=== PATIENT | female | born 1960 | race Hispanic/Latino ===

== ENCOUNTER 2021-02-11 07:15 | Emergency (ER) | payer BC ==
[2021-02-11 08:03] LABS: Urine Blood 1+ (Negative); Urine Glucose Negative (Negative); Urine Protein 1+ (Negative); Urine Specific Gravity >=1.030 (1.005-1.030)
[2021-02-11 08:10] LABS: Absolute Lymphocytes (CBC) 0.9 K/uL (0.7-4.9); Basophils % 0.3 % (0-1.3); Hematocrit 43.7 % (36.0-45.0); Lymphocytes % 15.6 % (15.3-44.8)
[2021-02-11 08:18] LABS: Urine Bacteria <20 /HPF (<20); Urine RBC NONE SEEN /HPF (NONE SEEN)
[2021-02-11 08:29] LABS: Albumin 3.5 g/dL (3.4-5.0); Bilirubin Direct 0.1 mg/dL (0-0.2); Bilirubin Total 0.4 mg/dL (0.2-1.0); Potassium 3.4 mmol/L (3.5-5.1); Protein, Total 7.6 g/dL (6.4-8.2)
[2021-02-11] MEDS ORDERED: NA CHLORIDE 0.9% 500 ML ONE (08:29)
[2021-02-11] MEDS ORDERED: ONDANSETRON 4 MG/2 ML VIAL ONE ×2 (08:29→09:43)
--- NOTE | 2021-02-11 09:00 | RAD REPORT ---
EXAM DESCRIPTION: CTAbdomen Pelvis W Contrast - 02/11/2021 8:29 am CLINICAL HISTORY: Abdominal pain. Abd pain;Nausea / vomiting COMPARISON: No comparisons TECHNIQUE: Biphasic CT imaging of the abdomen and pelvis was performed with 100 ml non-ionic IV cont rast. All CT scans are performed using dose optimization technique as appropriate and may include automated exposure control or mA/KV adjustment according to patient size. FINDINGS: Small area of infiltrate is seen posterior left lung base.Small hiatal hernia. Mild diffuse fatty liver. The spleen, pancreas, adrenal glands are normal. Small cyst in the superior right kidney. No aggressive kidney mass or hydronephrosis. No bowel obstruction, free air, free fluid or abscess. Mild sigmoid diverticulosis without diverticul itis. The appendix is normal. Small fat containing umbilical hernia. No evidence of significant lymph adenopathy. No suspicious bony findings. IMPRESSION: Mild posterior left lung base infiltrate/developing pneumonia. Diffuse fatty liver.
[2021-02-11] MEDS ORDERED: HYDROCODONE/CHLORPHEN 5 ML/OSYR ONE (09:43)
--- NOTE | 2021-02-11 10:22 | RAD REPORT ---
EXAM DESCRIPTION: RAD - Chest Single View - 02/11/2021 9:33 am CLINICAL HISTORY: COUGH Chest pain. COMPARISON: No comparisons FINDINGS: Portable technique limits examination quality. Interstitial lung prominence is seen bilaterally suggesting underlying bronchitis or viral infection. Small opacity is seen in the right suprahilar region which may represent a superimposed developing i nfiltrate/ pneumonia. The heart is upper limit normal in size.
[2021-02-11] MEDS ORDERED: NA CHLORIDE 0.9% 50 ML ONE (11:37)
[2021-02-11] MEDS ORDERED: PROMETHAZINE INJ 25 MG/ML AMP ONE (11:37)
[2021-02-11] MEDS ORDERED: CEFTRIAXONE/SWI 1gm 1 GM/10 ML SYR ONE (11:37)
--- NOTE | 2021-02-11 12:18 | ER ---
Nurse's Notes [facility] Name: Agatha Palma Age: 60 yrs Sex: Female : 1960 Arrival Date: 02/11/2021 Time: 07:18 Bed 19 Private MD: Diagnosis: Vomiting;Pneumonia due to SARS-associated coronavirus Presentation: 02/11 07:18 Chief complaint: Patient states: N/V that began 2 days ago. Dry cough that began ss yesterday. Ebola Screen: Patient denies exposure to infectious person. Patient denies travel to an Ebola-affected area in the 21 days before illness onset. Initial Sepsis Screen: Does the patient meet any 2 criteria? No. Patient's initial sepsis screen is negative. Does the patient have a suspected source of infection? No. Patient's initial sepsis screen is negative. Risk Assessment: Do you want to hurt yourself or someone else? Patient reports no desire to harm self or others. Onset of symptoms was February 09, 2021. 07:18 Method Of Arrival: Ambulatory ss 07:18 Acuity: CASPER 3 ss 07:25 Coronavirus screen: Client denies travel out of the [place] in the last 14 days. Client bb presents with at least one sign or symptom that may indicate coronavirus-19. Standard/surgical mask placed on the client. Provider contacted for isolation considerations. Historical: - Allergies: 07:24 No Known Allergies; bb - Home Meds: 07:24 lisinopril-hydrochlorothiazide 20-12.5 mg oral tab 1 tab once daily [Active]; bb promethazine 25 mg Oral tab 1 tab as needed [Active]; - PMHx: 07:24 Hypertensive disorder; bb - PSHx: 07:24 None; bb - Immunization history:: Adult Immunizations up to date, Client reports receiving the 2nd dose of the Covid vaccine. - Social history:: Smoking status: Patient denies any tobacco usage or history of. Screenin:14 Abuse screen: Denies threats or abuse. Denies injuries from another. Nutritional ph screening: No deficits noted. Tuberculosis screening: No symptoms or risk factors identified. Fall Risk None identified. Assessment: 07:30 General: Appears in no apparent distress. uncomfortable, obese, well groomed, Behavior ph is calm, cooperative, appropriate for age, Denies fever, chills. Pain: Denies pain. Neuro: Level of Consciousness is awake, alert, obeys commands, Oriented to person, place, time, situation. Cardiovascular: Reports fatigue, nausea, vomiting, Denies chest pain, Capillary refill < 3 seconds in bilateral fingers Patient's skin is warm and dry. Respiratory: Reports cough that is Airway is patent Respiratory effort is even, unlabored, Respiratory pattern is regular, symmetrical. GI: Abdomen is non-distended, Reports nausea, vomiting, Patient currently denies abdominal pain, diarrhea. Derm: Skin is intact, Skin is pink, warm \T\ dry. Musculoskeletal: Circulation, motion, and sensation intact. Range of motion: intact in all extremities. 08:14 Reassessment: Pt taken to CT via wheelchair. ph 09:30 Reassessment: Patient appears in no apparent distress at this time. Patient and/or ph family updated on plan of care and expected duration. Pain level reassessed. Patient is alert, oriented x 3, equal unlabored respirations, skin warm/dry/pink. 10:47 Reassessment: Patient appears in no apparent distress at this time. Patient and/or ph family updated on plan of care and expected duration. Pain level reassessed. Patient is alert, oriented x 3, equal unlabored respirations, skin warm/dry/pink. 11:45 Reassessment: Patient appears in no apparent distress at this time. Patient and/or ph family updated on plan of care and expected duration. Pain level reassessed. Patient is alert, oriented x 3, equal unlabored respirations, skin warm/dry/pink. Pt c/o nausea, dry heaving noted, IV phenergan given per verbal order from ERP. Vital Signs: 07:25 BP 152 / 85; Pulse 96; Resp 16; Temp 98.7(O); Pulse Ox 94% on R/A; Weight 108.86 kg; bb Height 5 ft. 1 in. (154.94 cm); Pain 5/10; 09:15 BP 128 / 70; Pulse 77; Resp 18; Pulse Ox 96% on R/A; ph 10:30 BP 120 / 75; Pulse 77; Resp 18; Pulse Ox 95% on R/A; ph 11:30 BP 145 / 73; Pulse 74; Resp 18; Pulse Ox 96% on R/A; ph 07:25 Body Mass Index 45.35 (108.86 kg, 154.94 cm) bb ED Course: 07:18 Patient arrived in ED. ss 07:20 Triage completed. ss 07:24 Arm band placed on right wrist. bb 07:27 Angela Gifford, LUIS is Primary Nurse. ph 07:30 Michi Huffman NP is PHCP. pm1 07:30 Mauro Hawkins MD is Attending Physician. pm1 07:55 Inserted saline lock: 22 gauge in left wrist, using aseptic technique. ph 08:29 CT Abd/Pelvis - IV Contrast Only In Process Unspecified. EDMS 09:14 Patient has correct armband on for positive identification. Bed in low position. Call ph light in reach. Side rails up X 1. Pulse ox on. NIBP on. Door closed. Noise minimized. Warm blanket given. 09:33 Chest Single View XRAY In Process Unspecified. EDMS 11:35 No provider procedures requiring assistance completed. ph 12:33 IV discontinued, intact, bleeding controlled, No redness/swelling at site. ph Administered Medications: 08:14 Drug: Zofran (Ondansetron) 4 mg Route: IVP; Site: left wrist; ph 09:29 Follow up: Response: No adverse reaction ph 08:14 Drug: NS 0.9% 500 ml Route: IV; Rate: bolus; Site: left wrist; ph 09:28 Follow up: Response: No adverse reaction; IV Status: Completed infusion; IV Intake: ph 500ml 09:26 Drug: Zofran (Ondansetron) 4 mg Route: IVP; Site: left wrist; ph 11:55 Follow up: Response: No adverse reaction; Nausea unchanged ph 11:34 Drug: Rocephin (cefTRIAXone) 1 grams Route: IV; Rate: calculated rate; Site: left wrist;ph 11:55 Follow up: Response: No adverse reaction; IV Status: Completed infusion ph 11:35 Drug: Phenergan (promethazine) 12.5 mg Route: IVP; Site: left wrist; ph 11:55 Follow up: Response: No adverse reaction; Nausea is decreased ph Intake: 09:28 IV: 500ml; Total: 500ml. ph Outcome: 12:17 Discharge ordered by . pm1 12:32 Discharged to home ambulatory. ph 12:32 Condition: stable 12:32 Discharge instructions given to patient, Instructed on discharge instructions, follow up and referral plans. medication usage, Demonstrated understanding of instructions, follow-up care, medications. 12:33 Patient left the ED. ph Signatures: Dispatcher [employer] EDMS Isamar Crowe RN RN bb Maren Jha RN RN ss Angela Gifford RN RN ph Michi Huffman, [employer] TE[employer] pm1 Corrections: (The following items were deleted from the chart) 07:26 07:18 Chief complaint: Patient states: N/V that began 2 days ago. yumi canela
--- NOTE | 2021-02-11 12:18 | EDPHYS ---
Physician Documentation [facility] Name: Agatha Palma Age: 60 yrs Sex: Female : 1960 Arrival Date: 02/11/2021 Time: 07:18 Bed 19 Private MD: ED Physician Mauro Hawkins HPI: 02/11 08:47 This 60 yrs old Female presents to ER via Ambulatory with complaints of pm1 Nausea/Vomiting. 08:47 The patient presents to the emergency department with nausea, vomiting. Onset: The pm1 symptoms/episode began/occurred 2 day(s) ago. Possible causes: unknown. The symptoms are aggravated by food , The symptoms are alleviated by prescription meds, phenergan. Associated signs and symptoms: Pertinent positives: abdominal pain, Pertinent negatives: constipation, diarrhea, dysuria, fever. Severity of symptoms: in the emergency department the symptoms are unchanged. The patient has not recently seen a physician. 08:47 Patient has been taking left over prescription of Phenergan. Taking 1/4 of the tablets. pm1 Works but does not last long . Historical: - Allergies: 07:24 No Known Allergies; bb - Home Meds: 07:24 lisinopril-hydrochlorothiazide 20-12.5 mg oral tab 1 tab once daily [Active]; bb promethazine 25 mg Oral tab 1 tab as needed [Active]; - PMHx: 07:24 Hypertensive disorder; bb - PSHx: 07:24 None; bb - Immunization history:: Adult Immunizations up to date, Client reports receiving the 2nd dose of the Covid vaccine. - Social history:: Smoking status: Patient denies any tobacco usage or history of. ROS: 08:47 Constitutional: Negative for fever, chills, and weight loss, ENT: Negative for injury, pm1 pain, and discharge, Neck: Negative for injury, pain, and swelling, Cardiovascular: Negative for chest pain, palpitations, and edema, Respiratory: Negative for shortness of breath, cough, wheezing, and pleuritic chest pain. 08:47 Back: Negative for injury and pain, : Negative for injury, bleeding, discharge, and swelling, MS/Extremity: Negative for injury and deformity, Skin: Negative for injury, rash, and discoloration, Neuro: Negative for headache, weakness, numbness, tingling, and seizure. 08:47 Abdomen/GI: Positive for abdominal pain, nausea and vomiting, of the right upper quadrant and left upper quadrant, Negative for diarrhea, constipation. 08:47 All other systems are negative. Exam: 08:47 Constitutional: This is a well developed, well nourished patient who is awake, alert, pm1 and in no acute distress. Head/Face: Normocephalic, atraumatic. 08:47 Back: No spinal tenderness. No costovertebral tenderness. Full range of motion. Skin: Warm, dry with normal turgor. Normal color with no rashes, no lesions, and no evidence of cellulitis. MS/ Extremity: Pulses equal, no cyanosis. Neurovascular intact. Full, normal range of motion. 08:47 Eyes: Exam is negative for acute changes, Extraocular movements: no acute changes, Conjunctiva: no acute changes, no injection, Sclera: no acute changes, icterus, is not appreciated. 08:47 ENT: Mouth: Lips: normal, Oral mucosa: normal, pink and intact, moist. 08:47 Cardiovascular: Rate: normal, Rhythm: regular, Pulses: no pulse deficits are appreciated, Edema: is not appreciated. 08:47 Respiratory: Exam negative for acute changes, respiratory distress, shortness of breath, Breath sounds: are clear throughout. 08:47 Abdomen/GI: Inspection: obese Palpation: abdomen is soft and non-tender, in all quadrants. 08:47 Neuro: Exam negative for acute changes, Orientation: is normal, Mentation: is normal, Motor: is normal, moves all fours. Vital Signs: 07:25 BP 152 / 85; Pulse 96; Resp 16; Temp 98.7(O); Pulse Ox 94% on R/A; Weight 108.86 kg; bb Height 5 ft. 1 in. (154.94 cm); Pain 5/10; 09:15 BP 128 / 70; Pulse 77; Resp 18; Pulse Ox 96% on R/A; ph 10:30 BP 120 / 75; Pulse 77; Resp 18; Pulse Ox 95% on R/A; ph 11:30 BP 145 / 73; Pulse 74; Resp 18; Pulse Ox 96% on R/A; ph 07:25 Body Mass Index 45.35 (108.86 kg, 154.94 cm) bb MDM: 07:33 Patient medically screened. pm1 08:51 Data reviewed: vital signs. pm1 12:16 Data interpreted: Pulse oximetry: on is 96 %. Interpretation: normal. Counseling: I had pm1 a detailed discussion with the patient and/or guardian regarding: the historical points, exam findings, and any diagnostic results supporting the discharge/admit diagnosis. 02/11 07:33 Order name: Basic Metabolic Panel pm1 02/11 07:33 Order name: CBC with Diff; Complete Time: 08:29 pm1 02/11 07:33 Order name: Hepatic Function; Complete Time: 08:29 pm02/11 07:33 Order name: Lipase; Complete Time: 08:29 pm1 02/11 07:33 Order name: Flu; Complete Time: 09:30 pm1 02/11 07:33 Order name: Strep; Complete Time: 09:30 pm02/11 07:33 Order name: Urine Microscopic Only; Complete Time: 08:29 pm1 02/11 07:33 Order name: Basic Metabolic Panel; Complete Time: 08:29 EDMS 02/11 07:40 Order name: Troponin (emerg Dept Use Only); Complete Time: 08:42 pm02/11 08:03 Order name: Urine Dipstick-Ancillary; Complete Time: 08:29 EDMS 02/11 09:26 Order name: Throat Culture EDNY 02/11 10:56 Order name: SARS-COV-2 RT PCR; Complete Time: 10:56 EDMS 02/11 11:12 Order name: CREATININE WHOLE BLOOD; Complete Time: 12:14 EDNY 02/11 07:33 Order name: IV Saline Lock; Complete Time: 08:14 pm02/11 07:33 Order name: Labs collected and sent; Complete Time: 08:14 pm02/11 07:33 Order name: Urine Dipstick-Ancillary (obtain specimen); Complete Time: 08:04 pm02/11 07:40 Order name: EKG; Complete Time: 07:40 pm02/11 07:40 Order name: EKG - Nurse/Tech; Complete Time: 08:04 pm02/11 07:40 Order name: CT Abd/Pelvis - IV Contrast Only; Complete Time: 09:11 pm02/11 09:12 Order name: Chest Single View XRAY; Complete Time: 10:23 pm1 Administered Medications: 08:14 Drug: Zofran (Ondansetron) 4 mg Route: IVP; Site: left wrist; ph 09:29 Follow up: Response: No adverse reaction ph 08:14 Drug: NS 0.9% 500 ml Route: IV; Rate: bolus; Site: left wrist; ph 09:28 Follow up: Response: No adverse reaction; IV Status: Completed infusion; IV Intake: ph 500ml 09:26 Drug: Zofran (Ondansetron) 4 mg Route: IVP; Site: left wrist; ph 11:55 Follow up: Response: No adverse reaction; Nausea unchanged ph 11:34 Drug: Rocephin (cefTRIAXone) 1 grams Route: IV; Rate: calculated rate; Site: left wrist;ph 11:55 Follow up: Response: No adverse reaction; IV Status: Completed infusion ph 11:35 Drug: Phenergan (promethazine) 12.5 mg Route: IVP; Site: left wrist; ph 11:55 Follow up: Response: No adverse reaction; Nausea is decreased ph Disposition: 02/12 07:05 Co-signature as Attending Physician, Mauro Hawkins MD I agree with the assessment and kdr plan of care. Disposition Summary: 02/11/21 12:17 Discharge Ordered Location: Home pm1 Problem: new pm1 Symptoms: have improved pm1 Condition: Stable pm1 Diagnosis - Vomiting pm1 - Pneumonia due to SARS-associated coronavirus pm1 Followup: pm1 - With: Emergency Department - When: As needed - Reason: Worsening of condition Followup: pm1 - With: Private Physician - When: 2 - 3 days - Reason: Recheck today's complaints, Continuance of care, Re-evaluation by your physician Discharge Instructions: - Discharge Summary Sheet pm1 - Nausea and Vomiting, Adult pm1 - COVID-19 pm1 Forms: - Medication Reconciliation Form pm1 - Thank You Letter pm1 - Antibiotic Education pm1 - Prescription Opioid Use pm1 Prescriptions: - azithromycin 250 mg Oral tablet - take 2 tablet by ORAL route once daily for 1 day then 1 tablet (250 mg) by oral pm1 route once daily for 4 days; 6 tablet; Refills: 0, Product Selection Permitted - promethazine 25 mg Oral Tablet - take 1 tablet by ORAL route every 6 hours As needed; 20 tablet; Refills: 0, pm1 Product Selection Permitted - Guaifenesin AC 10-100 mg/5 mL Oral Liquid - take 10 milliliters by ORAL route every 4 hours As needed; 240 milliliter; pm1 Refills: 0, Product Selection Permitted Signatures: Dispatcher [employer] EDMS Mauro Hawkins MD MD kdr Ballard, Brenda RN RN bb Angela Gifford RN RN ph Michi Huffman, STEAMFITTER STEAMFITTER pm1 Corrections: (The following items were deleted from the chart) 02/11 08:57 07:33 CORONAVIRUS+.BRZ ordered. EDMS EDMS
[2021-02-11 12:40] VITALS: TEMP 98.7
[2021-02-11 12:45] VITALS: BP 145/73; O2SAT 96
--- NOTE | 2021-02-12 10:44 | EKG ---
Test Date: 2021-02-11 Test Time: 07:47:01 Engineering Assistant: CONOR MEASUREMENT RESULTS: Intervals: Rate: 87 HI: 138 QRSD: 74 QT: 370 QTc: 445 [place]: P: 9 HI: 138 QRS: 51 T: 3 INTERPRETIVE STATEMENTS: Normal sinus rhythm Normal ECG No previous ECG available for comparison Electronically Signed On 02-12-21 10:42:01 CDT by Orlando Leal
== END 2021-02-11 12:33 | disposition home or self-care (01) ==
LOC: ER 07:15
DX: U07.1 COVID-19 (principal); J12.82 Pneumonia due to coronavirus disease 2019; I10 Essential (primary) hypertension
CPT/HCPCS: 87070; 85025; 80048; 36415; 82565; 80076; 87081; 84484; 83690; 87804 ×2; 74177; 71045; U0003; Q9967; J2550; J0696; J7040; J2405 ×2; 81003; 81015; 93005; 96361; 96365; 96375; 99284